=== PATIENT | male | born 1975 ===

== ENCOUNTER 2021-04-28 01:34 | Emergency (ER) | payer SELFPAY ==
[2021-04-28] MEDS ORDERED: METOPROLOL TARTRATE 5 MG/5 ML INJ IV ONE (02:12)
[2021-04-28] MEDS ORDERED: MORPHINE 4 MG/1 ML INJ IV ONE ×3 (02:13→09:53)
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
--- NOTE | 2021-04-28 02:46 | XRay Report ---
CHEST 2 VIEWS INDICATION / CLINICAL INFORMATION: CP. COMPARISON: None available. FINDINGS: SUPPORT DEVICES: None. HEART / MEDIASTINUM: Sternotomy. Normal cardiac silhouette size. LUNGS / PLEURA: Mild pulmonary vascular congestion. The lungs are otherwise grossly clear. No pleural effusion. No pneumothorax. ADDITIONAL FINDINGS: No significant additional findings. IMPRESSION: 1. Mild pulmonary vascular congestion. Signer Name: Claudia Garcia MD Signed: 04/28/2021 2:42 AM Workstation Name: [id number]
[2021-04-28 02:59] LABS: Basophils % (Auto) 0.1 % (0.0-1.8); Eosinophils % (Auto) 0.6 % (0.0-4.3); Hematocrit 31.2 % (35.5-45.6); Hemoglobin 9.4 gm/dl (11.8-15.2); Lymphocytes # (Auto) 0.3 K/mm3 (1.2-5.4); Lymphocytes % (Auto) 4.6 % (13.4-35.0); Mean Corpuscular HGB Conc 30 % (32-34); Mean Corpuscular Volume 78 fl (84-94); Monocytes # (Auto) 0.5 K/mm3 (0.0-0.8); Monocytes % (Auto) 7.5 % (0.0-7.3); Platelet Count 142 K/mm3 (140-440); Red Blood Count 3.98 M/mm3 (3.65-5.03); Red Cell Distribution Width 18.4 % (13.2-15.2)
[2021-04-28 03:07] LABS: INR 0.96 (0.87-1.13)
[2021-04-28 03:12] LABS: Partial Thromboplastin Time 28.1 Sec. (24.2-36.6)
[2021-04-28 03:23] LABS: Alanine Aminotransferase 26 units/L (7-56); Albumin 4.5 g/dL (3.9-5); Blood Urea Nitrogen 20 mg/dL (9-20); Calcium 9.4 mg/dL (8.4-10.2); Hemolysis Index 4
[2021-04-28 03:30] LABS: BUN/Creatinine Ratio 29
[2021-04-28 03:39] VITALS: BP 147/106
[2021-04-28] MEDS ORDERED: fentaNYL 100 MCG/2 ML INJ IV ONE (04:07)
--- NOTE | 2021-04-28 04:47 | Cat Scan Report ---
CT chest wo con INDICATION / CLINICAL INFORMATION: Chest pain radiation to back, Hx of Dissection. TECHNIQUE: Axial CT imaging of the thorax was obtained without contrast. (Patient is allergic to iodinated contr ast) Coronal and sagittal reformatted imaging obtained and reviewed. All CT scans at this location a re performed using CT dose reduction for ALARA by means of automated exposure control. COMPARISON: Chest radiograph 04/28/2021 FINDINGS: CT thorax without IV contrast demonstrates normal appearance of the mediastinum for noncontrast exam. The thoracic aorta is of normal caliber. I cannot exclude aortic dissection without IV contrast. No mediastinal or hilar adenopathy noted. Heart is of normal size. No pericardial effusion. Both lungs are well-expanded and are clear from acute disease. No pulmonary opacities or pleural effu john are identified. There is an incidental finding of a 7 mm irregular pulmonary nodule in the right upper lobe (slice 27 on series 2). This is noncalcified. Imaging of the upper abdomen does not demonstrate any acute finding. Prior cholecystectomy. No significant acute osseous abnormality. IMPRESSION: 1. No acute pulmonary abnormality noted. No evidence of pneumonia. 2. Thoracic aorta is of normal caliber. Aortic dissection cannot be excluded without IV contrast. 3. Single incidental pulmonary nodule(s) in the right upper lobe measuring 7 mm with solid character istics. Recommendation according to Fleischner Society 2017 Guidelines: Low Risk Patient: CT at 6-12 months, then consider CT at 18-24 months; High Risk Patient: CT at 6-12 months, then CT at 18-24 redd Signer Name: Claudia Garcia MD Signed: 04/28/2021 4:43 AM Workstation Name: [id number]
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
[2021-04-28] MEDS ORDERED: HYDROmorphone 1 MG/1 ML INJ IV ONE (10:21)
--- NOTE | 2021-04-28 13:13 | Electrocardiograph Report ---
[facility] Test Date: 2021-04-28 Test Time: 06:46:54 Pat Name: GONZALO AU Department: Room: Gender: M Managed Care Nurse: CORNELIA : 1975 Requested By: ILSA STEELE Order Number: [id number] Reading MD: Sanjay Marie Measurements Intervals [place] Rate: 90 P: 45 IN: 189 QRS: 52 QRSD: 91 T: 88 QT: 377 QTc: 461 Interpretive Statements Sinus rhythm No previous ECG available for comparison Electronically Signed On 04-28-2021 13:13:37 EST by Sanjay Marie
== END 2021-04-28 12:35 | disposition left against medical advice (07) ==
LOC: ED 01:34
DX: R07.9 Chest pain, unspecified (principal); I25.10 Atherosclerotic heart disease of native coronary artery without angina pectoris; Z91.040 Latex allergy status
CPT/HCPCS: 36415; 71046; 71250; 73590; 80053; 83880; 84484; 85025; 85379; 85610; 85730; 93005; 96374; 96375; 96376; 99284; J1170; J2270; J3010; J9280